=== PATIENT | female | born 1970 | race Caucasian/White ===

== ENCOUNTER → 2016-11-29 | Outpatient (CLI) | payer BC ==
--- NOTE | 2016-11-29 13:21 | XR ---
EXAMINATION TYPE: XR cervical spine comp DATE OF EXAM: 11/29/2016 1:17 PM COMPARISON: NONE HISTORY: Pain TECHNIQUE: Four views are submitted. FINDINGS: The odontoid is intact. There are no compression deformities. The prevertebral soft tissue structur es are within normal limits. IMPRESSION: 1. No acute process. If symptoms persist consider MRI.
--- NOTE | 2016-11-29 13:23 | XR ---
EXAM TYPE: LUMBAR SPINE X RAY SERIES COMPARISON: NONE HISTORY: Leg numbness TECHNIQUE: 4 views are submitted. FINDINGS: Alignment is anatomic. The pedicles are intact. The transverse processes are intact. There is no s pondylolysis or spondylolisthesis. Facet arthropathy L5-S1. Posterior spondylosis L5-S1. IMPRESSION: 1. Facet arthropathy L5-S1. Mild posterior spondylosis also noted.
== END | disposition home or self-care (01) ==
LOC: RADXRMAIN 12:42
PROVIDERS: ATTEND Pediatrics
DX: M47.816 Spondylosis without myelopathy or radiculopathy, lumbar region (principal); M46.87 Other specified inflammatory spondylopathies, lumbosacral region; R20.0 Anesthesia of skin
CPT/HCPCS: 72050; 72110

== ENCOUNTER 2017-02-07 09:08 | Day surgery (SDC) | payer BC ==
[2017-02-05 09:31] VITALS: BMI 35.4
--- NOTE | 2017-02-07 07:55 | P.GSHP ---
History of Present Illness H&P Date: 02/07/17 CHIEF COMPLAINT: GERD HISTORY OF PRESENT ILLNESS: The patient is a 46-year-old female who presents reports gastroesophageal reflux disease. Upper endoscopy was offered for further evaluation and management. PAST MEDICAL HISTORY: Please see list. PAST SURGICAL HISTORY: Please see list. MEDICATIONS: Please see list. ALLERGIES: Please see list. SOCIAL HISTORY: No illicit drug use FAMILY HISTORY: No reports of Crohn disease or ulcerative colitis. REVIEW OF ORGAN SYSTEMS: CONSTITUTIONAL: No reports of fevers or chills. GI: Denies any blood in stools or constipation. PHYSICAL EXAM: VITAL SIGNS: Stable GENERAL: Well-developed and pleasant in no acute distress. HEENT: No scleral icterus. Extraocular movements grossly intact. Moist buccal mucosa. NECK: Supple without lymphadenopathy. CHEST: Unlabored respirations. Equal bilateral excursions. CARDIOVASCULAR: Regular rate and rhythm. Distal 2+ pulses. ABDOMEN: Soft, nondistended. MUSCULOSKELETAL: No clubbing, cyanosis, or edema. ASSESSMENT: 1. Gastroesophageal reflux disease PLAN: 1. Recommend proceeding with an upper endoscopy Past Medical History Past Medical History: Asthma, Fibromyalgia, GERD/Reflux Additional Past Medical History / Comment(s): migraines, chest pain from anxiety , hiatal hernia, hx ulcer, History of Any Multi-Drug Resistant Organisms: None Reported Past Surgical History: Appendectomy, Breast Surgery, Cholecystectomy, Orthopedic Surgery, Uterine Ablation Additional Past Surgical History / Comment(s): rt shoulder rotator cuff, mnotrell breast reduction, exploratory laparoscopy, Past Anesthesia/Blood Transfusion Reactions: Motion Sickness Past Psychological History: Anxiety Smoking Status: Former smoker Past Alcohol Use History: Occasional Additional Past Alcohol Use History / Comment(s): quit smoking 15 yrs ago, smoked for about 1 year Past Drug Use History: None Reported - Past Family History Mother Family Medical History: Cancer Medications and Allergies Home Medications Medication Instructions Recorded Confirmed Type ALPRAZolam [Xanax] 0.25 mg PO QID PRN 02/05/17 02/05/17 History DULoxetine HCL [Cymbalta] 20 mg PO DAILY 02/05/17 02/05/17 History Esomeprazole Magnesium [NexIUM] 40 mg PO BID 02/05/17 02/05/17 History Inhalers 1 applicate IH DAILY PRN 02/05/17 02/05/17 History Allergies Allergy/AdvReac Type Severity Reaction Status Date / Time Penicillins Allergy Rash/Hives Verified 02/05/17 09:23
[~2017-02-07 09:08] MED LIST: LACTATED RINGERS 1,000 ML IV SCH; LIDOCAINE 1% 20 ML VIAL (10MG/ML) FOR IV START INTRADERMA PRN
[2017-02-07 09:22] VITALS: TEMP 97.6
[2017-02-07] MEDS ORDERED: PROPOFOL 10 MG/ML 20 ML VIAL IV ONE (09:50)
[2017-02-07] MEDS ORDERED: LIDOCAINE 1% INJ 10MG/ML (20 ML MDV) ONE (09:50)
--- NOTE | 2017-02-07 10:00 | P.PCN ---
Date of Procedure: 02/07/17 Description of Procedure: PREOPERATIVE DIAGNOSIS: Gastroesophageal reflux disease. POSTOPERATIVE DIAGNOSIS: Gastroesophageal reflux disease. Diaphragmatic hiatal hernia. OPERATION: Esophagogastroduodenoscopy with biopsies along antrum. SURGEON: Mayra Wick MD ANESTHESIA: MAC. INDICATIONS: The patient is a 46-year-old female who presents with a history of gastroesophageal reflux disease. Benefits and risks of the procedure were described. Informed consent was obtained. DESCRIPTION: The patient was brought into the endoscopy suite and laid in the left lateral decubitus position. An Olympus gastroscope was passed along the posterior oropharynx down to the distal esophagus where the squamocolumnar junction was encountered at 33 cm from the incisors. The stomach was entered and minimal bile reflux was found. Additional findings are listed below. Biopsies with cold forceps were obtained of the antrum. The first through third portion of the duodenum was examined and unremarkable. Retroflexion of the scope confirmed Hill grade 4 lower esophageal valve. The squamocolumnar junction demostrated mild chronic LA grade A erosive esophagitis. The stomach was desufflated. The patient tolerated the procedure well. FINDINGS: Squamocolumnar junction 33 cm from the incisors. Diaphragmatic hiatus at 35 cm from the incisors Hill grade 4 lower esophageal valve. LA grade A erosive esophagitis, mild. Chronic gastritis along the antrum. No active duodenitis. RECOMMENDATIONS: Further recommendations pending results of pathology report. Upper endoscopy as needed. Plan - Discharge Summary Discharge Medication List ALPRAZolam [Xanax] 0.25 mg PO QID PRN 02/05/17 [History] DULoxetine HCL [Cymbalta] 20 mg PO DAILY 02/05/17 [History] Esomeprazole Magnesium [NexIUM] 40 mg PO BID 02/05/17 [History] Inhalers 1 applicate IH DAILY PRN 02/05/17 [History]
[2017-02-07 10:11] VITALS: BP 120/78
[2017-02-07 10:40] VITALS: PULSE 78; RESP 18
== END 2017-02-07 10:41 | disposition home or self-care (01) ==
LOC: ORWHC2ENDO 09:08
PROVIDERS: ATTEND Surgery Plastic and Reconstructive Surgery
DX: K21.0 Gastro-esophageal reflux disease with esophagitis (principal); K29.50 Unspecified chronic gastritis without bleeding; K44.9 Diaphragmatic hernia without obstruction or gangrene; J45.909 Unspecified asthma, uncomplicated; M79.7 Fibromyalgia; G43.909 Migraine, unspecified, not intractable, without status migrainosus; F41.9 Anxiety disorder, unspecified; Z79.899 Other long term (current) drug therapy; Z88.0 Allergy status to penicillin; Z87.891 Personal history of nicotine dependence
CPT/HCPCS: 81025; 88305; 88342; 43239; J2001; J2704

== ENCOUNTER → 2020-11-23 | Outpatient (CLI) | payer BC ==
[2020-11-23 15:33] LABS: Basophils # (A) 0.04 X 10*3/uL (0.00-0.10); Basophils % (A) 0.4 %; Eosinophils # (A) 0.18 X 10*3/uL (0.04-0.35); HCT 44.6 % (37.2-46.3); HGB 13.9 g/dL (12.0-15.0); Lymphocytes # (A) 2.91 X 10*3/uL (0.90-5.00); Lymphocytes % (A) 31.6 %; MCH 28.3 pg (27.0-32.0); MCHC 31.2 g/dL (32.0-37.0); MCV 90.7 fL (80.0-97.0); Mean Platelet Volume 10.1 fL (9.5-12.2); Monocytes # (A) 0.52 X 10*3/uL (0.20-1.00); Monocytes % (A) 5.6 %; Neutrophils # (A) 5.53 X 10*3/uL (1.80-7.70); Platelet Count 321 X 10*3/uL (140-440); RBC 4.92 X 10*6/uL (4.10-5.20); RDW 13.6 % (11.5-14.5); WBC 9.22 X 10*3/uL (4.50-10.00)
[2020-11-23 18:10] LABS: African American GFR (CKD) 76.1 (60.0-200.0); Albumin 4.2 g/dL (3.80-4.90); Albumin/Globulin Ratio 1.35 (1.60-3.17); Anion Gap 8.5 mmol/L (4.00-12.00); Calcium 10.3 mg/dL (8.7-10.3); Carbon Dioxide 29.5 mmol/L (21.6-31.8); Chol/HDL Ratio 3.61; Globulin 3.1 g/dL (1.6-3.3); LDL Cholesterol,Calculated 135.4 mg/dL (0.0-131.0); Non-African American GFR(CKD) 65.6 (60.0-200.0); Potassium 4.3 mmol/L (3.5-5.5); Total Protein 7.3 g/dL (6.2-8.2); VLDL Calculation 31.6 mg/dL (5.00-40.00)
== END | disposition home or self-care (01) ==
LOC: LABWHC1 09:19
PROVIDERS: ATTEND Physician Assistant
DX: Z00.00 Encounter for general adult medical examination without abnormal findings (principal); Z13.220 Encounter for screening for lipoid disorders
CPT/HCPCS: 36415; 80053; 80061; 85025

== ENCOUNTER 2024-01-30 10:25 | Day surgery (SDC) | payer BC ==
[~2024-01-30 10:25] MED LIST changes: -LACTATED RINGERS 1,000 ML IV SCH; +LIDOCAINE 1% (10MG/ML) FOR IV START INTRADERMA PRN; -LIDOCAINE 1% 20 ML VIAL (10MG/ML) FOR IV START INTRADERMA PRN
[2024-01-30] MEDS: LACTATED RINGERS 1,000 ML IV SCH (12:09)
[2024-01-30 12:29] VITALS: RESP 16; TEMP 97.7
[2024-01-30] MEDS ORDERED: PROPOFOL 10 MG/ML 20 ML VIAL IV ONE (12:39)
--- NOTE | 2024-01-30 12:58 | P.PCN ---
Date of Procedure: 01/30/24 Procedure(s) Performed: BRIEF HISTORY: Patient is a 53-year-old pleasant white female scheduled for an elective colonoscopy as a part of screening for colon cancer/positive Cologuard. PROCEDURE PERFORMED: Colonoscopy. PREOPERATIVE DIAGNOSIS: Screening for colon cancer/positive Cologuard. IV sedation per Anesthesia. PROCEDURE: After informed consent was obtained, the patient, was brought into the endoscopy unit. IV sedation was administered by Anesthesia under continuous monitoring. Digital rectal examination was normal. Initially the Olympus CF-160 flexible video colonoscope was then inserted in the rectum, gradually advanced into the cecum without any difficulty. Careful examination was performed as the scope was gradually being withdrawn. Ileocecal valve and the appendiceal orifice were visualized and appeared normal. Prep was fair. Mucosa of the cecum, ascending colon, transverse colon, descending colon, sigmoid colon, and rectum appeared normal. Retroflexion was performed in the rectum and no lesions were seen. The patient tolerated the procedure well. IMPRESSION: Normal-appearing colon from rectum to cecum with no evidence of colorectal neoplasia. RECOMMENDATIONS: Findings of this examination were discussed with the patient as well as family. She was advised to have repeat screening colonoscopy in 10 years..
[2024-01-30 13:22] VITALS: BP 108/73; PULSE 83
== END 2024-01-30 13:40 | disposition home or self-care (01) ==
LOC: ORWHC2ENDO 10:25
PROVIDERS: ATTEND Internal Medicine Gastroenterology
DX: R19.5 Other fecal abnormalities (principal); I10 Essential (primary) hypertension; J45.909 Unspecified asthma, uncomplicated; G43.909 Migraine, unspecified, not intractable, without status migrainosus; M79.7 Fibromyalgia; F41.9 Anxiety disorder, unspecified; Z87.891 Personal history of nicotine dependence; K21.9 Gastro-esophageal reflux disease without esophagitis; Z90.49 Acquired absence of other specified parts of digestive tract; Z98.890 Other specified postprocedural states; Z88.0 Allergy status to penicillin
CPT/HCPCS: 81025; 45378; J2704

== ENCOUNTER → 2024-02-06 | Outpatient (CLI) | payer BC ==
--- NOTE | 2024-02-08 10:34 | MM ---
Reason for Exam: Screening (asymptomatic). Last mammogram was performed 7 year(s) and 11 month(s) ago. Patient History: Menarche at age 11. First Full-Term at age 23. Postmenopausal. Patient used Hormonal Contraceptives for 1 year. 2003, Bilateral Reduction. Paternal grandmother had breast cancer. Risk Values: Josey 5 year model risk: 1.1%. NCI Lifetime model risk: 8.4%. Prior Study Comparison: 12/04/2013 Bilateral Diagnostic Mammogram, [facility]. 03/01/2016 Bilateral Screening Mammogram, [facility]. 03/15/2016 Left Diagnostic Mammogram, [facility]. Tissue Density: The breasts are heterogeneously dense, which may obscure small masses. Findings: Analyzed By CAD. There is no suspicious group of microcalcifications or new suspicious mass in either breast. Benign-appearing calcifications. Overall Assessment: Benign, BI-RAD 2 Management: Screening Mammogram of both breasts in 1 year. . Patient should continue monthly self-breast exams. A clinical breast exam by your physician is recommended on an annual basis. This exam should not preclude additional follow-up of suspicious palpable abnormalities. Note on Josey scores and lifetime risk: 1. A Josey score greater than 3% is considered moderate risk. If this is the case, consider specialist referral to assess eligibility for a risk reducing agent. 2. If overall lifetime risk for the development of breast cancer is 20% or higher, the patient may qualify for future screening with alternating mammogram and breast MRI. Electronically signed and approved by: Santana Amaya M.D. Radiologis
== END | disposition home or self-care (01) ==
LOC: RADMAMWWP 13:31
PROVIDERS: ATTEND Family Medicine
DX: Z12.31 Encounter for screening mammogram for malignant neoplasm of breast (principal); Z78.0 Asymptomatic menopausal state; Z80.3 Family history of malignant neoplasm of breast
CPT/HCPCS: 77063; 77067

== ENCOUNTER 2024-02-24 16:09 | Emergency (ER) | payer BC ==
[2024-02-24 16:53] VITALS: TEMP 98.5
--- NOTE | 2024-02-24 17:28 | ED ---
Eye Problem HPI - General Chief complaint: Eye Problems Stated complaint: RT EYE INFECTION Time Seen by Provider: 02/24/24 16:37 Source: patient, RN notes reviewed Mode of arrival: ambulatory Limitations: no limitations - History of Present Illness Initial comments: 53-year-old female with a past medical history significant for prediabetes, hypertension, and known penicillin allergy causing widespread rash presenting to the ED with complaint of right eye problem. Patient states a week ago noticed some redness and had a foreign body sensation in her right eye. Since then it progressively worsened. Was seen by [facility] ophthalmology and was advised to present to this facility on 02/21/2024 for a CAT scan to rule out an orbital cellulitis. CT scan at this time revealed no findings concerning for orbital cellulitis. She was discharged home on clindamycin and levofloxacin. States initially in the 2 days following discharge had improvement of her symptoms however following this noted increasing worsening, noting increasing swelling and pain of her right eye and now notes pain of her left eye with redness especially with movement of the eyes. Denies fever or chills. Denies headache or neck pain. Per boyfriend at the bedside, has been acting her normal self. No chest pain shortness of breath. No other complaints at this time. She has not a contact lens wear. - Related Data Home Medications Medication Instructions Recorded Confirmed ALPRAZolam [Xanax] 0.25 mg PO QID PRN 02/05/17 01/30/24 DULoxetine HCL [Cymbalta] 20 mg PO HS 02/05/17 01/30/24 Famotidine [Pepcid] 20 mg PO HS 01/29/24 01/30/24 Montelukast [Singulair] 10 mg PO HS 01/29/24 01/30/24 Omeprazole 40 mg PO BID PRN 01/29/24 01/30/24 amLODIPine [Norvasc] 10 mg PO HS 01/29/24 01/30/24 Previous Rx's Medication Instructions Recorded Levofloxacin [Levaquin] 750 mg PO DAILY 7 Days #1 tab 02/21/24 clindamycin HCL [Cleocin] 300 mg PO Q6HR #40 cap 02/21/24 Allergies Allergy/AdvReac Type Severity Reaction Status Date / Time Penicillins Allergy Rash/Hives Verified 02/21/24 17:00 Review of Systems ROS Statement: Those systems with pertinent positive or pertinent negative responses have been documented in the HPI. ROS Other: All systems not noted in ROS Statement are negative. Past Medical History Past Medical History: Asthma, Fibromyalgia, GERD/Reflux, Hypertension Additional Past Medical History / Comment(s): migraines, chest pain from anxiety, hiatal hernia, hx ulcer History of Any Multi-Drug Resistant Organisms: None Reported Past Surgical History: Appendectomy, Breast Surgery, Cholecystectomy, Orthopedic Surgery, Uterine Ablation Additional Past Surgical History / Comment(s): Rt shoulder rotator cuff, montrell breast reduction, exploratory laparoscopy, bilat. thumb tendon release(01/23/24 - Lt. - 3 weeks prior Rt. was done) Past Anesthesia/Blood Transfusion Reactions: Motion Sickness Additional Past Anesthesia/Blood Transfusion Reaction / Comment(s): sometimes motion sickness Past Psychological History: Anxiety Smoking Status: Former smoker Past Alcohol Use History: None Reported Past Drug Use History: None Reported - Past Family History Mother Family Medical History: Cancer, Hypertension Additional Family Medical History / Comment(s): thyroid cancer Father Family Medical History: Coronary Artery Disease (CAD), Myocardial Infarction (NM) General Exam Limitations: no limitations General appearance: alert, in no apparent distress Eye exam: Present: other (Bilateral eyes appear erythematous. Some proptosis noted of the right eye, none of the left eye. Significant right periorbital edema and tenderness to palpation. No entrapment upon extraocular motions h owever does report pain. Pupils reactive to light. IOP 25-R, 27-L) Neck exam: Present: normal inspection Respiratory exam: Present: normal lung sounds bilaterally Cardiovascular Exam: Present: regular rate GI/Abdominal exam: Present: soft Neurological exam: Present: alert, oriented X3 Skin exam: Present: warm, dry Course Vital Signs 02/24/24 16:31 Temperature 98.5 F Pulse Rate 91 Respiratory 18 Rate Blood Pressure 113/80 O2 Sat by Pulse 98 Oximetry Medical Decision Making - Medical Decision Making Was pt. sent in by a medical professional or institution (, PA, [employer], urgent care, hospital, or correction...) When possible be specific @ -No Did you speak to anyone other than the patient for history (EMS, parent, family, police, friend...)? What history was obtained from this source @ -No Did you review nursing and triage notes (agree or disagree)? Why? @ -I reviewed and agree with nursing and triage notes Were old charts reviewed (outside hosp., previous admission, EMS record, old EKG, old radiological studies, urgent care reports/EKG's, correction records)? Report findings @ -No old charts were reviewed Differential Diagnosis (chest pain, altered mental status, abdominal pain women, abdominal pain men, vaginal bleeding, weakness, fever, dyspnea, syncope, headache, dizziness, GI bleed, back pain, seizure, CVA, palpatations, mental health, musculoskeletal)? @ -Preseptal cellulitis, orbital cellulitis, retrobulbar abscess, meningitis. This not meant to be an all-inclusive list. EKG interpreted by me (3pts min.). @ -None X-rays interpreted by me (1pt min.). @ -None done CT interpreted by me (1pt min.). @ -CT interpreted by me showing diffuse preseptal soft tissue swelling over the right and left orbits worsened from prior on 02/21/2024. No underlying abscess formation at this time. U/S interpreted by me (1pt. min.). @ -None done What testing was considered but not performed or refused? (CT, X-rays, U/S, labs)? Why? @ -None What meds were considered but not given or refused? Why? @ -None Did you discuss the management of the patient with other professionals (professionals i.e. , PA, [employer], lab, RT, psych nurse, public health social worker, needle felt making machine operator, teacher, environmental compliance officer, welfare case worker)? Give summary @ -Case discussed with Dr. Manriquez of [facility] hospitalist who recommends transfer secondary to no ophthalmology on-call. Case discussed with Dr. [place], who accepted transfer. Was smoking cessation discussed for >3mins.? @ -No Was critical care preformed (if so, how long)? @ -No Were there social determinants of health that impacted care today? How? (Homelessness, low income, unemployed, alcoholism, drug addiction, transportation, low edu. Level, literacy, decrease access to med. care, fdc, rehab)? @ -No Was there de-escalation of care discussed even if they declined (Discuss DNR or withdrawal of care, Hospice)? DNR status @ -No What co-morbidities impacted this encounter? (DM, HTN, Smoking, COPD, CAD, Can cer, CVA, ARF, Chemo, Hep., AIDS, mental health diagnosis, sleep apnea, morbid obesity)? @ -None Was patient admitted / discharged? Hospital course, mention meds given and route, prescriptions, significant lab abnormalities, going to OR and other pertinent info. @ -Transfer 53-year-old female presenting to the ED with complaints of right eye swelling and pain. Patient reports onset exactly 1 week ago of the right eye. Seen by production planner and was advised to present to the ED for further evaluation on 02/21/2024 to rule out orbital cellulitis. CT at this time revealed evidence of preseptal cellulitis however no evidence of orbital cellulitis. Discharged home on clindamycin and levofloxacin. Reported initial improvement over the next 1 to 2 days however reported significant worsening recently and now spreading to the left eye. CT was performed which revealed worsening of preseptal cellulitis over the right orbit now overlying the left. No findings concerning for orbital cellulitis at this time. Labs reviewed. No elevation in white blood cell count, chemistry panel largely unremarkable. Vital signs stable afebrile. Unfortunately at this time, no ophthalmology on-call. Patient will be transferred to [facility] for failure of outpatient treatment for IV antibiotics with ophthalmology consult. Discussed plan of care with patient and family who are in agreement. Blood cultures and IV antibiotics held at this time so receiving facility may obtain their own set of blood cultures prior to initiating IV antibiotics. Undiagnosed new problem with uncertain prognosis? @ -No Drug Therapy requiring intensive monitoring for toxicity (Heparin, Nitro, Insulin, Cardizem)? @ -No Were any procedures done? @ -No Diagnosis/symptom? @ -Bilateral preseptal cellulitis Acute, or Chronic, or Acute on Chronic? @ -Acute Uncomplicated (without systemic symptoms) or Complicated (systemic symptoms)? @ -Complicated Side effects of treatment? @ -No Exacerbation, Progression, or Severe Exacerbation? @ -No Poses a threat to life or bodily function? How? (Chest pain, USA, NM, pneumonia, PE, COPD, DKA, ARF, appy, cholecystitis, CVA, Diverticulitis, Homicidal, Suicidal, threat to staff... and all critical care pts) @ -Possibly - Lab Data Result diagrams: 02/24/24 17:16 02/24/24 17:16 Lab Results 02/24/24 02/24/24 02/24/24 Range/Units 17:16 17:16 17:16 WBC 8.7 (3.8-10.6) k/uL RBC 5.09 (3.80-5.40) m/uL Hgb 14.0 (11.4-16.0) gm/dL Hct 42.7 (34.0-46.0) % MCV 83.9 (80.0-100.0) fL MCH 27.5 (25.0-35.0) pg MCHC 32.7 (31.0-37.0) g/dL RDW 13.7 (11.5-15.5) % Plt Count 349 (150-450) k/uL MPV 8.4 Neutrophils % 54 % Lymphocytes % 35 % Monocytes % 7 % Eosinophils % 3 % Basophils % 1 % Neutrophils # 4.7 (1.3-7.7) k/uL Lymphocytes # 3.0 (1.0-4.8) k/uL Monocytes # 0.6 (0-1.0) k/uL Eosinophils # 0.2 (0-0.7) k/uL Basophils # 0.1 (0-0.2) k/uL Sodium 137 (137-145) mmol/L Potassium 3.7 (3.5-5.1) mmol/L Chloride 102 (98-107) mmol/L Carbon Dioxide 27 (22-30) mmol/L Anion Gap 8 mmol/L BUN 15 (7-17) mg/dL Creatinine 0.90 (0.52-1.04) mg/dL Est GFR (CKD-EPI)AfAm 85 (>60 ml/min/1.73 sqM) Est GFR (CKD-EPI)NonAf 74 (>60 ml/min/1.73 sqM) Glucose 122 H (74-99) mg/dL Plasma Lactic Acid Chu 1.2 (0.7-2.0) mmol/L Calcium 9.3 (8.4-10.2) mg/dL Total Bilirubin 0.7 (0.2-1.3) mg/dL AST 24 (14-36) U/L ALT 9 (4-34) U/L Alkaline Phosphatase 69 (38-126) U/L Total Protein 7.5 (6.3-8.2) g/dL Albumin 4.3 (3.5-5.0) g/dL Disposition Clinical Impression: Preseptal cellulitis Disposition: OTHER INSTITUTION NOT DEFINED Condition: Fair Referrals: Roger Arellano DO [Primary Care Provider] - 1-2 days Time of Disposition: 19:45 - Out of Hospital Transfer - Req. Specs Out of Hospital Transfer - Requested Specifics: Other Emergency Center ([facility])
[2024-02-24 17:39] LABS: Basophils # (A) 0.1 k/uL (0-0.2); Basophils % (A) 1 %; Eosinophils # (A) 0.2 k/uL (0-0.7); Eosinophils % (A) 3 %; HCT 42.7 % (34.0-46.0); Lymphocytes % (A) 35 %; MCH 27.5 pg (25.0-35.0); MCHC 32.7 g/dL (31.0-37.0); MCV 83.9 fL (80.0-100.0); Mean Platelet Volume 8.4; Monocytes # (A) 0.6 k/uL (0-1.0); Monocytes % (A) 7 %; Neutrophils # (A) 4.7 k/uL (1.3-7.7); Neutrophils % (A) 54 %; Platelet Count 349 k/uL (150-450); RBC 5.09 m/uL (3.80-5.40); RDW 13.7 % (11.5-15.5); WBC 8.7 k/uL (3.8-10.6)
[2024-02-24 17:48] LABS: ALT 9 U/L (4-34); AST 24 U/L (14-36); African American GFR (CKD) 85 (>60 ml/min/1.73 sqM); Albumin 4.3 g/dL (3.5-5.0); Alkaline Phosphatase 69 U/L (38-126); Anion Gap 8 mmol/L; Blood Urea Nitrogen 15 mg/dL (7-17); Calcium 9.3 mg/dL (8.4-10.2); Carbon Dioxide 27 mmol/L (22-30); Chloride 102 mmol/L (98-107); Glucose 122 mg/dL (74-99); Non-African American GFR(CKD) 74 (>60 ml/min/1.73 sqM); Potassium 3.7 mmol/L (3.5-5.1); Sodium 137 mmol/L (137-145); Total Bilirubin 0.7 mg/dL (0.2-1.3); Total Protein 7.5 g/dL (6.3-8.2)
[2024-02-24] MEDS: HYDROmorphone 1 MG/ML 1 ML SYRINGE IVP STA ×2 (18:09→21:55)
[2024-02-24] MEDS: KETOROLAC 15 MG/ML 1 ML VIAL IVP STA (18:10)
[2024-02-24] MEDS: FLUORESCEIN STRIPS 1 MG STRIP BOTH EYES ONE (18:11)
[2024-02-24] MEDS: PROPARACAINE 0.5% OPHTH DROPS 15 ML BTL BOTH EYES STA (18:11)
--- NOTE | 2024-02-24 19:17 | CT ---
EXAMINATION TYPE: CT orbits w con DATE OF EXAM: 02/24/2024 COMPARISON: 02/21/2024 HISTORY: cellulitis, bilat eye swelling, worsening from comparison CT DLP: 292.9 mGycm Automated exposure control for dose reduction was used. Contrast: 100 mL Isovue-300 Technique: Axial images 2 mm thick sections. Reconstructed images in the coronal and sagittal planes. FINDINGS: Soft tissue swelling is over the right orbit. No underlying abscess is identified. Milder soft tissue swelling left orbit. No underlying abscess. The globes are symmetrical. Fat appears normal. Extraocular muscles are normal and symmetrical. Optic nerves appear symmetrical. Superior ophthalmic veins are unremarkable. Pituitary is unremarkable. Carotid siphons are normal. Lacrimal glands appear normal. Septum has minimal right septal deviation. Maxillary spine is unremarkable. No acute fractures are ev ident. IMPRESSION: 1. DIFFUSE PRESEPTAL SOFT TISSUE SWELLING OVER THE RIGHT AND LEFT ORBITS SLIGHTLY WORSENED OVER THE I NTERVAL. NO UNDERLYING ABSCESS FORMATION AT THIS TIME.
[2024-02-24 20:46] LABS: Appearance,Urine Clear (Clear); Bilirubin,Urine Negative (Negative); Blood,Urine Negative (Negative); Color,Urine Colorless; Glucose,Urine (UA) Negative (Negative); Ketones,Urine Negative (Negative); Leukocyte Esterase,Urine Negative (Negative); Nitrite,Urine Negative (Negative); Protein,Urine Negative (Negative); Urobilinogen,Urine <2.0 mg/dL (<2.0)
[2024-02-24 21:56] VITALS: BP 135/89; PULSE 76; RESP 16
== END 2024-02-24 22:00 | disposition other institution (70) ==
LOC: EC 16:09
DX: L03.213 Periorbital cellulitis (principal); Z88.0 Allergy status to penicillin
CPT/HCPCS: 99285; 96374; 96375; 96376; 36415; 80053; 83605; 85025; 81003; 70481; J1170; J1885; Q9967

== ENCOUNTER → 2024-08-22 | Outpatient (CLI) | payer BC ==
[2024-08-22 10:44] LABS: African American GFR (CKD) >90 (>60 ml/min/1.73 sqM); Blood Urea Nitrogen 10 mg/dL (7-17); Non-African American GFR(CKD) 84 (>60 ml/min/1.73 sqM)
--- NOTE | 2024-08-22 11:46 | CT ---
EXAMINATION TYPE: CT neck chest w con CT DLP: 1354.7 mGycm, Automated exposure control for dose reduction was used. DATE OF EXAM: 08/22/2024 11:14 AM COMPARISON: CT orbits 02/24/2024, 02/21/2024. CLINICAL INDICATION:Female, 54 years old with history of L04.0 ACUTE LYMPHADENITIS OF FACE, HEAD AND NECK;, Swollen lymphnodes TECHNIQUE: Standard enhanced CT of the neck and chest. Axial sections with coronal and sagittal refo rmats were obtained. Contrast used:100 mL of Isovue 300 with IV Contrast, (none if empty) Oral contrast used: (none if empty) FINDINGS: BRAIN: Visualized portions are grossly unremarkable. ORBITS: Unremarkable SINUSES: Grossly unremarkable. SPACES OF THE NECK: Clear and symmetric. MUSCULOSKELETAL: No acute osseous pathology. LYMPH NODES: Several nonenlarged lymph nodes are seen along both anterior chains of the neck. No en larged lymph nodes greater than 1 cm in short axis identified. VASCULAR STRUCTURES: Visualized major arteries are patent without evidence of aneurysm. THORACIC INLET/AIRWAY: Airway is patent. The lung apices are clear. SOFT TISSUES/THYROID: Thyroid and remainder of the soft tissues are unremarkable. OTHER: none. LUNGS/ PLEURA: The lung parenchyma appears unremarkable. AIRWAY: Patent and unremarkable. HEART: Size within normal limits.No pericardial effusion. MEDIASTINUM: No evidence of adenopathy. VASCULATURE: No aortic aneurysm. MUSCULOSKELETAL: No acute osseous abnormalities SOFT TISSUES/LYMPH NODES: Unremarkable. LOWER NECK: No significant findings. UPPER ABDOMEN: Gallbladder is surgical absent. Small to moderate size hiatal hernia. IMPRESSION 1. No definite evidence for significant abnormality. Several bilateral neck nonenlarged lymph nodes i dentified. No lymph node greater than 1 cm in short axis identified. 2. Small to moderate size hiatal hernia. [facility], , 08/22/2024 11:44 AM
== END | disposition home or self-care (01) ==
LOC: RADCTMAIN 10:10
PROVIDERS: ATTEND Internal Medicine
DX: L04.0 Acute lymphadenitis of face, head and neck (principal); K44.9 Diaphragmatic hernia without obstruction or gangrene
CPT/HCPCS: 82565; 84520; 70491; 71260; 36415; Q9967